=== PATIENT | female | born 1970 | race African-American/Black ===

== ENCOUNTER 2021-04-10 09:45 | Emergency (ER) | payer OTHER ==
[~2021-04-10] VITALS: Ht 167.6 cm; Wt 90.0 kg
[2021-04-10 09:47] VITALS: BP 150/80
[2021-04-10] MEDS ORDERED: IBUPROFEN 800MG TABLET PO ONE (10:15)
[2021-04-10] MEDS ORDERED: TRAMADOL 50MG TABLET PO ONE (10:15)
[2021-04-10] MEDS ORDERED: IBUP-2030 MT (12:24)
[2021-04-10] MEDS ORDERED: TRAM50TA3 MT (12:24)
== END 2021-04-10 12:30 | disposition home or self-care (01) ==
LOC: ER 09:45
DX: S89.91XA Unspecified injury of right lower leg, initial encounter (principal); Z79.899 Other long term (current) drug therapy; V49.09XA Driver injured in collision with other motor vehicles in nontraffic accident, initial encounter; Y93.89 Activity, other specified; Y92.89 Other specified places as the place of occurrence of the external cause; Y99.8 Other external cause status
CPT/HCPCS: 29505; 73562; 73590; 73610; 73630; 99284